=== PATIENT | female | born 1975 | race Caucasian/White ===

== ENCOUNTER 2018-10-08 08:17 | Outpatient (CLI) | payer BC ==
[2018-10-08 08:50] LABS: #Basophils 0.1 thou/uL (0.0-0.2); #Eosinphils 0.2 thou/uL (0.0-0.7); #Lymphocytes 2.1 thou/uL (1.20-3.40); #Monocytes 0.3 thou/uL (0.11-0.59); #Neutrophils 2.9 thou/uL (1.40-6.50); %Basophils 1.1 % (0.0-1.0); %Eosinophils 3.9 % (0.0-10.0); %Lymphocytes 38.1 % (21.0-51.0); %Monocytes 5.3 % (0.0-10.0); %Neutrophils 51.6 % (42.0-75.0); Hemoglobin 11.5 g/dL (12.0-16.0); Mean Corpuscular HGB CONC 32.3 g/dL (32.0-36.0); Mean Corpuscular Hemoglobin 29.4 pg (27.0-31.0); Platelet Count 210 thou/uL (130-400); RBC Distribution Width 11.9 % (11.5-14.5); Red Blood Cell (RBC) Count 3.91 mill/uL (4.20-5.40); White Blood Cell (WBC) Count 5.6 thou/uL (4.8-10.8)
[2018-10-08 09:21] LABS: BHCG - Serum Negative (NEGATIVE); Pregs Control Background? CLEAR/WHITE (CLR/WHITE); Pregs Control Bar Appear? YES (CONTROL BAR)
[2018-10-08 09:29] LABS: ALT (SGPT) 12 U/L (8-55); AST (SGOT) 15 U/L (5-34); Albumin 3.9 g/dL (3.5-5.0); Alkaline Phosphatase 52 U/L (40-150); Anion Gap 12 mmol/L (10-20); BUN (Urea Nitrogen) 10 mg/dL (7.0-18.7); Bilirubin, Total 0.4 mg/dL (0.2-1.2); Calc. Creatinine Clearance 0 mL/min (70-130); Calcium 8.8 mg/dL (7.8-10.44); Carbon Dioxide 25 mmol/L (22-29); Chloride 106 mmol/L (98-107); Estimated GFR-MDRD 70; Globulin 2.3 g/dL (2.4-3.5); Glucose 88 mg/dL (70-105); Potassium 4.4 mmol/L (3.5-5.1); Protein, Total 6.2 g/dL (6.0-8.3); Sodium 139 mmol/L (136-145)
== END 2018-10-08 08:18 | disposition home or self-care (01) ==
LOC: LABBT 08:17
PROVIDERS: ATTEND Surgery
DX: Z01.812 Encounter for preprocedural laboratory examination (principal); K40.90 Unilateral inguinal hernia, without obstruction or gangrene, not specified as recurrent
CPT/HCPCS: 80053; 84703; 85025

== ENCOUNTER 2018-10-10 06:09 | Day surgery (SDC) | payer BC ==
[2018-10-08 08:19] VITALS: BMI 25.8
[2018-10-10] MEDS ORDERED: Levofloxacin 500 mg/D5W 100 ml Premix Bag ONE (06:24)
[2018-10-10] MEDS ORDERED: Clindamycin/D5W 900 mg/50 ml Premix Bag ONE (06:25)
[2018-10-10] MEDS ORDERED: Bupivacaine/Epinephrine 0.25% 30 ML VIAL ONE (07:05)
[2018-10-10] MEDS ORDERED: Fentanyl 100 MCG/2 ML VIAL ONE ×2 (07:08→08:49)
[2018-10-10] MEDS ORDERED: Meperidine HCl/PF 25 MG/ML VIAL ONE (08:47)
--- NOTE | 2018-10-10 12:29 | OP ---
DATE OF PROCEDURE: 10/10/2018 PREOPERATIVE DIAGNOSIS: Left groin pain with possible hernia. PROCEDURE PERFORMED: Left groin exploration, left inguinal hernia repair with mesh. INDICATIONS: This is a 42-year-old female, who has been having progressive left groin pain. She has had a questionable bulge there as well. FINDINGS: She had a small left direct inguinal hernia. DESCRIPTION OF PROCEDURE: After informed consent was obtained, the patient was taken to the operating room and given general mask anesthesia, placed in supine position. Groin was prepped and draped in usual fashion. Local anesthesia was infiltrated subcutaneously and deep and a transverse left inguinal incision was performed. Subcu divided sharply. The external oblique fascia was incised in direction of its fibers through the external ring. The round ligament was isolated with a Joshua drain. The ilioinguinal nerve was divided and cauterized. The floor was inspected. There was a small direct inguinal hernia just medial to the internal ring. The cremasteric fibers were , did not see a definite indirect sac. The round ligament was divided between clamps and tied with 2-0 silk suture. The hernia was circumscribed and reduced. Reduction maintained with a PHS hernia system. The posterior layer placed in the preperitoneal space, the anterior was laid out medially. It was sutured to the pubic tubercle with a 2-0 Prolene suture laterally tucked under the external oblique fascia. Hemostasis was assured. The external oblique fascia closed with a running 3-0 Vicryl. Elly was closed with interrupted 3-0 Vicryl and the skin closed with a running subcuticular 4-0 Rapide. Steri-Strips applied. Sterile bandage applied. The patient tolerated the procedure well, transferred to Recovery in good condition. Sponge and needle count verified correct x2. Job ID: [id number]
== END 2018-10-10 11:15 | disposition home or self-care (01) ==
LOC: SDC 06:09
PROVIDERS: ATTEND Surgery
PROC: 0YU60JZ Supplement Left Inguinal Region with Synthetic Substitute, Open Approach (ICD-10-PCS; principal; 2018-10-10)
DX: K40.90 Unilateral inguinal hernia, without obstruction or gangrene, not specified as recurrent (principal); Z88.0 Allergy status to penicillin; Z88.5 Allergy status to narcotic agent; Z79.899 Other long term (current) drug therapy
CPT/HCPCS: C1781; J0131; J1956; J2175; J3010; J3490

== ENCOUNTER 2021-05-20 11:35 | Outpatient (CLI) | payer BC | END 2021-05-20 11:36 | disposition home or self-care (01) | LOC: SCSMRI 11:35 | PROVIDERS: ATTEND Specialist | DX: M47.22 Other spondylosis with radiculopathy, cervical region (principal); M47.813 Spondylosis without myelopathy or radiculopathy, cervicothoracic region; M48.02 Spinal stenosis, cervical region; M48.03 Spinal stenosis, cervicothoracic region | CPT/HCPCS: 72141 ==

== ENCOUNTER 2021-07-22 13:13 | Outpatient (CLI) | payer BC | END 2021-07-22 13:14 | disposition home or self-care (01) | LOC: SCSRAD 13:13 | PROVIDERS: ATTEND Neurological Surgery | DX: M47.22 Other spondylosis with radiculopathy, cervical region (principal) | CPT/HCPCS: 72050 ==

== ENCOUNTER 2021-11-25 07:57 | Outpatient (CLI) | payer BC ==
[2021-11-25 10:40] LABS: Hemoglobin 12.1 g/dL (12.0-15.5); Mean Corpuscular HGB CONC 33.7 g/dL (32.0-36.0); Mean Corpuscular Hemoglobin 29.7 pg (27.0-33.0); Platelet Count 254 10x3/uL (150-450); RBC Distribution Width 12.4 % (11.5-14.5); Red Blood Cell (RBC) Count 4.08 10x6/uL (3.90-5.03); White Blood Cell (WBC) Count 6.8 10x3/uL (3.5-10.5)
[2021-11-25 10:47] LABS: Anion Gap 13 mmol/L (10-20); BUN (Urea Nitrogen) 12 mg/dL (7.0-18.7); Calc. Creatinine Clearance 0 mL/min (70-130); Calcium 8.8 mg/dL (7.8-10.44); Carbon Dioxide 21 mmol/L (22-29); Chloride 109 mmol/L (98-107); Estimated GFR 71; Glucose 81 mg/dL (70-105); Sodium 139 mmol/L (136-145)
[2021-11-25 11:03] LABS: INR-International Normal Ratio 0.9; PTT 24.9 sec (22.0-33.0); Prothrombin Time 9.8 sec (9.5-12.1)
== END 2021-11-25 07:58 | disposition home or self-care (01) ==
LOC: LABBT 07:57
PROVIDERS: ATTEND Surgery
DX: Z01.818 Encounter for other preprocedural examination (principal); M48.02 Spinal stenosis, cervical region; M50.10 Cervical disc disorder with radiculopathy, unspecified cervical region; Z20.822 Contact with and (suspected) exposure to COVID-19
CPT/HCPCS: 80048; 85027; 85610; 85730; 86850; 86900; 86901; 87811; 93005; 93010

== ENCOUNTER 2021-11-25 09:30 | Inpatient (IN) | payer BC ==
[2021-11-25 10:40] LABS: Hemoglobin 12.1 g/dL (12.0-15.5); Mean Corpuscular HGB CONC 33.7 g/dL (32.0-36.0); Mean Corpuscular Hemoglobin 29.7 pg (27.0-33.0); Platelet Count 254 10x3/uL (150-450); RBC Distribution Width 12.4 % (11.5-14.5); Red Blood Cell (RBC) Count 4.08 10x6/uL (3.90-5.03); White Blood Cell (WBC) Count 6.8 10x3/uL (3.5-10.5)
[2021-11-25 10:47] LABS: Anion Gap 13 mmol/L (10-20); BUN (Urea Nitrogen) 12 mg/dL (7.0-18.7); Calc. Creatinine Clearance 0 mL/min (70-130); Calcium 8.8 mg/dL (7.8-10.44); Carbon Dioxide 21 mmol/L (22-29); Chloride 109 mmol/L (98-107); Estimated GFR 71; Glucose 81 mg/dL (70-105); Sodium 139 mmol/L (136-145)
[2021-11-25 11:03] LABS: INR-International Normal Ratio 0.9; PTT 24.9 sec (22.0-33.0); Prothrombin Time 9.8 sec (9.5-12.1)
[2021-11-26 12:10] VITALS: BMI 26.6
[2021-11-30] MEDS ORDERED: Thrombin 5000 UNITS/5 ML VIAL ONE ×2 (06:43→06:44)
[2021-11-30] MEDS ORDERED: Midazolam HCl 2 mg/2 ml Vial ONE (07:00)
[2021-11-30] MEDS ORDERED: Ketamine 50 MG/ML (10ML VIAL) ONE (07:01)
[2021-11-30] MEDS ORDERED: fentaNYL Citrate/PF 100 MCG/2 ML SYRINGE ONE (07:01)
[2021-11-30] MEDS ORDERED: Dexmedetomidine 200 MCG/2 ML VIAL ONE (07:01)
[2021-11-30] MEDS ORDERED: Levofloxacin 500 mg/D5W 100 ml Premix Bag ONE (07:03)
[2021-11-30] MEDS ORDERED: Lidocaine 2% PF 5 ML VIAL ONE (07:12)
[2021-11-30] MEDS ORDERED: Clindamycin/D5W 900 mg/50 ml Premix Bag ONE (07:25)
[2021-11-30] MEDS ORDERED: Metoclopramide HCl 10 MG/2 ML VIAL ONE (07:38)
[2021-11-30] MEDS ORDERED: Glycopyrrolate 0.2 MG/ML 5 ML SYRINGE ONE (07:38)
[2021-11-30] MEDS ORDERED: Lidocaine 1% MPF 2 ML VIAL ONE (07:38)
[2021-11-30] MEDS ORDERED: PROPOFOL 200 MG/20 ML VIAL ONE (07:38)
[2021-11-30] MEDS ORDERED: Rocuronium Bromide 10 MG/ML (10ML VIAL) ONE (07:38)
[2021-11-30] MEDS ORDERED: ePHEDrine 50 MG/ML VIAL ONE (07:38)
[2021-11-30] MEDS ORDERED: Ondansetron PF 4 MG/2 ML Vial ONE (07:38)
[2021-11-30] MEDS ORDERED: diphenhydrAMINE 50 MG/ML VIAL ONE (07:38)
[2021-11-30] MEDS ORDERED: Ketorolac Tromethamine 30 MG/ML VIAL ONE (07:38)
[2021-11-30] MEDS ORDERED: Dexamethasone 20 MG/5 ML VIAL ONE (07:38)
[2021-11-30] MEDS ORDERED: NEOSTIGMINE 3 MG/3 ML SYR 3 MG/3 ML SYRINGE ONE (07:38)
[2021-11-30] MEDS ORDERED: Phenylephrine 10 MG/ML VIAL ONE (07:38)
[2021-11-30] MEDS ORDERED: Ondansetron HCl/PF 4 MG/2 ML Vial IVP PRN (10:02)
[2021-11-30] MEDS ORDERED: Promethazine HCl 25 MG/ML VIAL IVPB PRN (10:02)
[2021-11-30] MEDS ORDERED: Promethazine HCl 25 MG/ML VIAL IM PRN (10:02)
[2021-11-30] MEDS ORDERED: Acetaminophen 325 MG TAB PO PRN (10:15)
[2021-11-30] MEDS ORDERED: traMADol HCl 50 MG TAB PO PRN (10:15)
[2021-11-30] MEDS ORDERED: Ondansetron PF 4 MG/2 ML Vial IVP PRN (10:15)
[2021-11-30] MEDS ORDERED: HYDROcodone/Acetaminophen 7.5/325 mg Tablet PO PRN (10:15)
[2021-11-30] MEDS ORDERED: diphenhydrAMINE 25 MG CAP PO PRN (10:15)
[2021-11-30] MEDS ORDERED: Morphine 2 MG/ML VIAL SLOW IVP PRN (10:15)
[2021-11-30] MEDS ORDERED: Chloraseptic Spray 180 ml Bottle PO PRN (10:17)
[2021-11-30] MEDS ORDERED: hydrALAZINE 20 MG/ML VIAL SLOW IVP PRN (10:17)
[2021-11-30] MEDS ORDERED: tiZANidine HCl 4 MG TAB PO PRN (10:17)
[2021-11-30] MEDS ORDERED: Fentanyl 100 MCG/2 ML VIAL ONE (10:56)
[2021-11-30] MEDS ORDERED: Rimegepant Sulfate [Nurtec Odt] 75 MG Tab.Rapdis SL PRN (11:40)
[2021-11-30] MEDS: Sodium Chloride 0.9% 1,000 ML IV SCH (13:13)
[2021-11-30] MEDS: HYDROcodone/Acetaminophen 5/325 mg Tablet PO PRN ×2 (13:35→20:21)
[2021-11-30] MEDS: Clindamycin/D5W 900 MG in Premix Bag 1 BAG IVPB SCH (15:21)
[2021-11-30] MEDS: Pregabalin 75 MG CAP PO SCH (20:21)
[2021-11-30] MEDS: Cepastat Lozenges 1 LOZ PO PRN (20:41)
[2021-11-30] MEDS ORDERED: LEVONORGESTREL PO SCH (21:00)
[2021-11-30] MEDS ORDERED: Topiramate 25 MG TAB PO SCH (21:00)
[2021-11-30] MEDS ORDERED: ETHIN ESTRADIOL PO SCH (21:00)
[2021-11-30] MEDS ORDERED: Amitriptyline HCl 25 MG TAB PO SCH (21:00)
[2021-11-30] MEDS ORDERED: Cholecalciferol 1,000 UNITS (25 MCG) TAB PO SCH (21:00)
[2021-12-01] MEDS: Clindamycin/D5W 900 MG in Premix Bag 1 BAG IVPB SCH ×2 (00:15→08:25)
[2021-12-01] MEDS: Sodium Chloride 0.9% 1,000 ML IV SCH (00:15)
[2021-12-01] MEDS: Cepastat Lozenges 1 LOZ PO PRN (00:19)
[2021-12-01] MEDS: HYDROcodone/Acetaminophen 5/325 mg Tablet PO PRN (05:26)
[2021-12-01 06:07] VITALS: TEMP 98.2
[2021-12-01] MEDS: Pregabalin 75 MG CAP PO SCH (08:24)
[2021-12-01 08:59] VITALS: BP 112/75
== END 2021-12-01 10:43 | disposition home or self-care (01) | DRG 473 ==
LOC: SURG A 11-30 06:16
PROVIDERS: ADMIT Surgery; ATTEND Surgery
PROC: 0RG20A0 Fusion of 2 or more Cervical Vertebral Joints with Interbody Fusion Device, Anterior Approach, Anterior Column, Open Approach (ICD-10-PCS; principal; 2021-11-30)
PROC: 0RG40A0 Fusion of Cervicothoracic Vertebral Joint with Interbody Fusion Device, Anterior Approach, Anterior Column, Open Approach (ICD-10-PCS; 2021-11-30)
PROC: 0RB30ZZ Excision of Cervical Vertebral Disc, Open Approach (ICD-10-PCS; 2021-11-30)
PROC: 0RB50ZZ Excision of Cervicothoracic Vertebral Disc, Open Approach (ICD-10-PCS; 2021-11-30)
PROC: 00NW0ZZ Release Cervical Spinal Cord, Open Approach (ICD-10-PCS; 2021-11-30)
DX: M48.02 Spinal stenosis, cervical region (principal); M54.12 Radiculopathy, cervical region; Z20.822 Contact with and (suspected) exposure to COVID-19; R13.19 Other dysphagia; R49.0 Dysphonia; Z88.0 Allergy status to penicillin; Z88.5 Allergy status to narcotic agent
CPT/HCPCS: 76000; 80048; 85027; 85610; 85730; 86850; 86900; 86901; 87811; C1713; J1100; J1200; J1885; J1956; J2001; J2250; J2370; J2405; J2704; J2765; J3010; J3490; J7050

== ENCOUNTER 2021-12-11 11:04 | Inpatient (IN) | payer BC ==
[~2021-12-11 11:04] MED LIST: Iopamidol-370 76% 500 ML 1 ML ONE
[2021-12-11 12:22] LABS: #Eosinphils 0.1 thou/uL (0.0-0.7); #Lymphocytes 1.8 thou/uL (1.20-3.40); #Monocytes 0.7 thou/uL (0.11-0.59); #Neutrophils 7.3 thou/uL (1.40-6.50); %Basophils 0.5 % (0.0-1.0); %Eosinophils 0.5 % (0.0-10.0); %Monocytes 7.3 % (0.0-10.0); %Neutrophils 73.7 % (42.0-75.0); Hemoglobin 10.9 g/dL (12.0-16.0); Mean Corpuscular HGB CONC 32.9 g/dL (32.0-36.0); Mean Corpuscular Hemoglobin 30.4 pg (27.0-31.0); Mean Corpuscular Volume 92.2 fL (78.0-98.0); Mean Platelet Volume 7.2 fL (7.4-10.4); Platelet Count 204 thou/uL (130-400); RBC Distribution Width 11.6 % (11.5-14.5); Red Blood Cell (RBC) Count 3.59 mill/uL (4.20-5.40); White Blood Cell (WBC) Count 9.8 thou/uL (4.8-10.8)
[2021-12-11 12:37] LABS: BHCG - Serum Negative (NEGATIVE); Pregs Control Background? CLEAR/WHITE (CLR/WHITE); Pregs Control Bar Appear? YES (CONTROL BAR)
[2021-12-11 12:43] LABS: ALT (SGPT) 22 U/L (8-55); AST (SGOT) 16 U/L (5-34); Albumin 3.6 g/dL (3.5-5.0); Alkaline Phosphatase 94 U/L (40-110); Anion Gap 11 mmol/L (10-20); BUN (Urea Nitrogen) 12 mg/dL (7.0-18.7); Bilirubin, Total 0.7 mg/dL (0.2-1.2); Calc. Creatinine Clearance 0 mL/min (70-130); Calcium 8.7 mg/dL (7.8-10.44); Carbon Dioxide 24 mmol/L (22-29); Chloride 104 mmol/L (98-107); Estimated GFR 62; Glucose 93 mg/dL (70-105); Potassium 4.1 mmol/L (3.5-5.1); Protein, Total 6.6 g/dL (6.0-8.3); Sodium 135 mmol/L (136-145)
[2021-12-11 13:06] LABS: CKMB 2.2 ng/mL (0-6.6)
[2021-12-11 13:45] LABS: SARS-CoV-2 NAA Rapid Test Not Detected (NotDetected)
[2021-12-11] MEDS ORDERED: Enoxaparin Sodium 80 MG/0.8 ML SYRINGE ONE (14:45)
[2021-12-11 14:47] LABS: Bacteria/HPF None Seen HPF (None Seen); Bilirubin Negative (Negative); Blood, Urine 1+ (Negative); Clarity Clear (Clear); Glucose, Urine (Dipstick) Normal (Negative); Ketone, Urine 20 mg/dL (Negative); Leukocyte Negative Leu/uL (Negative); Nitrite Negative (Negative); Protein, Urine (Dipstick) Negative (Neg-Trace); Specific Gravity, Urine 1.013 (1.002-1.036); Squamous Epithelial 0-3 HPF (0-3); Urobilinogen Normal mg/dL (Less than 2); WBC/HPF 0-3 HPF (0-3); pH, Urine 5.5 (5.0-9.0)
[2021-12-11] MEDS ORDERED: Heparin 25,000 units/D5W 0 ML ONE (15:38)
[2021-12-11] MEDS ORDERED: Acetaminophen 325 MG TAB PO PRN (15:48)
[2021-12-11] MEDS ORDERED: Ondansetron PF 4 MG/2 ML Vial IVP PRN (15:48)
[2021-12-11] MEDS ORDERED: tiZANidine HCl 4 MG TAB PO PRN (15:52)
[2021-12-11 15:58] LABS: INR-International Normal Ratio 1.1; Prothrombin Time 14.5 sec (12.0-14.7)
[2021-12-11 15:59] LABS: PTT 40.2 sec (22.9-36.1)
[2021-12-11] MEDS ORDERED: Heparin 25,000 units/D5W 500 ML IV SCH (16:45)
[2021-12-11] MEDS ORDERED: Heparin 10,000 UNITS/ 10 ML VIAL SLOW IVP SCH (16:45)
[2021-12-11] MEDS: traMADol HCl 50 MG TAB PO PRN (18:08)
[2021-12-11] MEDS: cefTRIAXone\\ROCEPHIN 2 GM in Sodium Chloride 0.9% 100 ML IVPB SCH (18:11)
[2021-12-11] MEDS: Topiramate 25 MG TAB PO SCH (20:20)
[2021-12-11] MEDS: Pregabalin 75 MG CAP PO SCH (20:21)
[2021-12-11] MEDS ORDERED: Dextrose 50% Abboject 50 ML SYRINGE SLOW IVP PRN (20:42)
[2021-12-11] MEDS ORDERED: Dextrose 5% in Water 1,000 ML IV PRN (20:42)
[2021-12-11] MEDS: HYDROcodone/Acetaminophen 5/325 mg Tablet PO PRN (20:52)
[2021-12-12 04:51] VITALS: BMI 27.9
[2021-12-12] MEDS: Pregabalin 75 MG CAP PO SCH ×2 (08:01→20:13)
[2021-12-12] MEDS: traMADol HCl 50 MG TAB PO PRN ×2 (08:03→14:57)
[2021-12-12 08:30] LABS: #Neutrophils 6.8 thou/uL (1.40-6.50); %Basophils 0.5 % (0.0-1.0); %Eosinophils 0.5 % (0.0-10.0); %Lymphocytes 22.5 % (21.0-51.0); %Monocytes 7.4 % (0.0-10.0); %Neutrophils 69.2 % (42.0-75.0); Hemoglobin 11.1 g/dL (12.0-16.0); Mean Corpuscular HGB CONC 32.8 g/dL (32.0-36.0); Mean Corpuscular Volume 91.2 fL (78.0-98.0); Platelet Count 234 thou/uL (130-400); RBC Distribution Width 11.5 % (11.5-14.5); White Blood Cell (WBC) Count 9.8 thou/uL (4.8-10.8)
[2021-12-12 08:31] LABS: #Lymphocytes 2.2 thou/uL (1.20-3.40); #Monocytes 0.7 thou/uL (0.11-0.59)
[2021-12-12 08:41] LABS: Chloride 105 mmol/L (98-107); Potassium 3.6 mmol/L (3.5-5.1); Sodium 137 mmol/L (136-145)
[2021-12-12 08:42] LABS: Calcium 8.6 mg/dL (7.8-10.44); Glucose 109 mg/dL (70-105)
[2021-12-12 08:44] LABS: Anion Gap 14 mmol/L (10-20); Carbon Dioxide 22 mmol/L (22-29)
[2021-12-12 08:46] LABS: Calc. Creatinine Clearance 108 mL/min (70-130); Estimated GFR 89
[2021-12-12 08:47] LABS: BUN (Urea Nitrogen) 6 mg/dL (7.0-18.7)
[2021-12-12 14:34] LABS: Hemoglobin 10.9 g/dL (12.0-16.0)
[2021-12-12] MEDS: cefTRIAXone\\ROCEPHIN 2 GM in Sodium Chloride 0.9% 100 ML IVPB SCH (16:02)
[2021-12-12] MEDS: Topiramate 25 MG TAB PO SCH (20:14)
[2021-12-12] MEDS: HYDROcodone/Acetaminophen 5/325 mg Tablet PO PRN (20:14)
[2021-12-12] MEDS: Amitriptyline HCl 25 MG TAB PO SCH (20:29)
[2021-12-13] MEDS: traMADol HCl 50 MG TAB PO PRN ×2 (07:24→15:32)
[2021-12-13] MEDS: Pregabalin 75 MG CAP PO SCH ×2 (07:25→20:23)
[2021-12-13] MEDS ORDERED: Amitriptyline HCl 25 MG TAB PO SCH (09:00)
[2021-12-13] MEDS ORDERED: Apixaban 5 MG TAB PO SCH (09:45)
[2021-12-13] MEDS: Apixaban 5 MG TAB PO SCH (20:23)
[2021-12-13] MEDS: Amitriptyline HCl 25 MG TAB PO SCH (20:24)
[2021-12-13] MEDS: HYDROcodone/Acetaminophen 5/325 mg Tablet PO PRN (20:24)
[2021-12-13] MEDS: Topiramate 25 MG TAB PO SCH (20:36)
[2021-12-14] MEDS: Apixaban 5 MG TAB PO SCH (08:13)
[2021-12-14] MEDS: traMADol HCl 50 MG TAB PO PRN (08:13)
[2021-12-14] MEDS: Pregabalin 75 MG CAP PO SCH (08:13)
[2021-12-14 08:42] LABS: Hemoglobin 11.1 g/dL (12.0-16.0); Mean Corpuscular HGB CONC 32.2 g/dL (32.0-36.0); Mean Corpuscular Hemoglobin 29.4 pg (27.0-31.0); Mean Corpuscular Volume 91.1 fL (78.0-98.0); Mean Platelet Volume 6.9 fL (7.4-10.4); Platelet Count 320 thou/uL (130-400); RBC Distribution Width 11.7 % (11.5-14.5); Red Blood Cell (RBC) Count 3.79 mill/uL (4.20-5.40); White Blood Cell (WBC) Count 6.1 thou/uL (4.8-10.8)
[2021-12-14 11:59] VITALS: TEMP 98.2
== END 2021-12-14 12:59 | disposition home or self-care (01) | DRG 176 ==
LOC: ERS 11:04 → IMCU/EMU 15:30
PROVIDERS: ADMIT Family Medicine; ATTEND Internal Medicine
DX: I26.94 Multiple subsegmental thrombotic pulmonary emboli without acute cor pulmonale (principal); J90 Pleural effusion, not elsewhere classified; J98.11 Atelectasis; Z20.822 Contact with and (suspected) exposure to COVID-19; D64.9 Anemia, unspecified; E78.00 Pure hypercholesterolemia, unspecified; I08.1 Rheumatic disorders of both mitral and tricuspid valves; G43.909 Migraine, unspecified, not intractable, without status migrainosus; Z88.6 Allergy status to analgesic agent; Z88.0 Allergy status to penicillin; Z98.1 Arthrodesis status; Z79.899 Other long term (current) drug therapy
CPT/HCPCS: 36415; 36416; 70450; 71045; 71275; 72125; 80048; 80053; 81003; 81015; 82553; 83605; 84484; 84703; 85025; 85027; 85610; 85730; 86140; 87040; 87804; 93005; 93306; 93970; J0696; J1644; J1650; J3490; J7070; Q9967; U0002

== ENCOUNTER 2022-01-12 10:08 | Outpatient (CLI) | payer BC | END 2022-01-12 10:09 | disposition home or self-care (01) | LOC: SCSRAD 10:08 | PROVIDERS: ATTEND Surgery | DX: M48.02 Spinal stenosis, cervical region (principal); M54.12 Radiculopathy, cervical region; Z98.1 Arthrodesis status | CPT/HCPCS: 72040 ==

== ENCOUNTER 2022-10-10 19:30 | Outpatient (CLI) | payer BC | END 2022-10-10 19:31 | disposition home or self-care (01) | LOC: SLEEPLAB 19:30 | PROVIDERS: ATTEND Student in an Organized Health Care Education/Training Program | DX: G47.33 Obstructive sleep apnea (adult) (pediatric) (principal); G47.10 Hypersomnia, unspecified; G47.9 Sleep disorder, unspecified; R06.83 Snoring; R53.83 Other fatigue; R09.89 Other specified symptoms and signs involving the circulatory and respiratory systems | CPT/HCPCS: 95810 ==

== ENCOUNTER 2022-11-07 20:45 | Emergency (ER) | payer BC ==
[~2022-11-07 20:45] MED LIST changes: -Iopamidol-370 76% 500 ML 1 ML ONE; +Iopamidol-370 76% 500 ML MDV (1 ML CHARGE) ONE
[2022-11-07 21:40] LABS: #Basophils 0.1 thou/uL (0.0-0.2); #Eosinphils 0.2 thou/uL (0.0-0.7); #Monocytes 0.6 thou/uL (0.11-0.59); #Neutrophils 3.3 thou/uL (1.40-6.50); %Basophils 0.7 % (0.0-1.0); %Eosinophils 2.8 % (0.0-10.0); %Lymphocytes 39.6 % (21.0-51.0); %Monocytes 8.3 % (0.0-10.0); %Neutrophils 48.5 % (42.0-75.0); Hematocrit 34.1 % (36.0-47.0); Hemoglobin 11.4 g/dL (12.0-16.0); Mean Corpuscular HGB CONC 33.4 g/dL (32.0-36.0); Mean Corpuscular Hemoglobin 29.5 pg (27.0-31.0); Mean Corpuscular Volume 88.1 fl (78.0-98.0); Mean Platelet Volume 9.7 fL (7.4-10.4); Platelet Count 202 10x3/uL (130-400); RBC Distribution Width 12.3 % (11.5-14.5); Red Blood Cell (RBC) Count 3.87 mill/uL (4.20-5.40); White Blood Cell (WBC) Count 6.7 10x3/uL (4.8-10.8)
[2022-11-07 21:52] LABS: Bacteria/HPF None Seen HPF (None Seen); Bilirubin Negative (Negative); Blood, Urine Trace (Negative); CAUTI Indications for Culture Dysuria,urgency,freq; Clarity Clear (Clear); Glucose, Urine (Dipstick) Normal (Negative); Ketone, Urine Negative (Negative); Leukocyte Negative Leu/uL (Negative); Nitrite Negative (Negative); Protein, Urine (Dipstick) Negative (Neg-Trace); RBC/HPF 0-3 HPF (0-3); Specific Gravity, Urine 1.004 (1.002-1.036); Squamous Epithelial None Seen HPF (0-3); Urobilinogen Normal mg/dL (Less than 2); WBC/HPF 0-3 HPF (0-3); pH, Urine 6.5 (5.0-9.0)
[2022-11-07 21:53] LABS: Urine Culture Reflex No No
[2022-11-07 21:53] LABS: INR-International Normal Ratio 0.9
[2022-11-07 21:54] LABS: PTT 32.6 sec (22.9-36.1)
[2022-11-07 21:58] LABS: BHCG - Serum Negative (NEGATIVE); Pregs Control Background? CLEAR/WHITE (CLR/WHITE); Pregs Control Bar Appear? YES (CONTROL BAR)
[2022-11-07 22:06] LABS: ALT (SGPT) 16 U/L (8-55); AST (SGOT) 19 U/L (5-34); Albumin 4.4 g/dL (3.5-5.0); Alkaline Phosphatase 82 U/L (40-110); Anion Gap 11 mmol/L (10-20); BUN (Urea Nitrogen) 10 mg/dL (7.0-18.7); Bilirubin, Total 0.3 mg/dL (0.2-1.2); Calc. Creatinine Clearance 0 mL/min (70-130); Calcium 9.5 mg/dL (7.8-10.44); Carbon Dioxide 24 mmol/L (22-29); Chloride 106 mmol/L (98-107); Estimated GFR 73; Globulin 2.8 g/dL (2.4-3.5); Glucose 91 mg/dL (70-105); Lipase 17 U/L (8-78); Potassium 3.7 mmol/L (3.5-5.1); Protein, Total 7.2 g/dL (6.0-8.3); Sodium 137 mmol/L (136-145)
[2022-11-07 22:07] LABS: Troponin I Less than 0.010 ng/mL (< 0.028)
[2022-11-07] MEDS ORDERED: Acetaminophen 500 MG TAB ONE (22:24)
== END 2022-11-07 23:06 | disposition home or self-care (01) ==
LOC: ERS 20:45
DX: M54.9 Dorsalgia, unspecified (principal); E78.00 Pure hypercholesterolemia, unspecified; Z79.01 Long term (current) use of anticoagulants
CPT/HCPCS: 36415; 71275; 80053; 81001; 83690; 83735; 83880; 84443; 84484; 84703; 85025; 85610; 85730; 93005; Q9967